=== PATIENT | female | born 1985 | race Hispanic/Latino ===

== ENCOUNTER 2018-06-14 19:40 | Emergency (ER) | payer OTHER ==
[2018-06-14] MEDS ORDERED: TETANUS/DIPHTHERIA TOXOID [ADULT] 0.5 ML VIAL IM ONE (21:14)
== END 2018-06-14 21:43 | disposition home or self-care (01) ==
LOC: EDH 19:40
DX: S97.112A Crushing injury of left great toe, initial encounter (principal); S97.122A Crushing injury of left lesser toe(s), initial encounter; E07.9 Disorder of thyroid, unspecified; W23.0XXA Caught, crushed, jammed, or pinched between moving objects, initial encounter; Y93.89 Activity, other specified; Y92.009 Unspecified place in unspecified non-institutional (private) residence as the place of occurrence of the external cause; Y99.8 Other external cause status
CPT/HCPCS: 73660; 90471; 90714; 96372